=== PATIENT | male | born 1960 | race Two or more races ===

== ENCOUNTER → 2024-10-19 | Emergency (ER) | payer OTHER ==
[~2024-10-19] VITALS: Ht 180.3 cm; Wt 86.2 kg
[~2024-10-19] MED LIST: AMOX-CLAV 875-1 EACH PO; CEFTRIAXONE SODIUM 1,000 MG VIAL IM STA; CEFTRIAXONE SODIUM 1,000 MG VIAL ONE; DICLOFENAC POTA50 MG PO; INTESTINEX680 M1 PO; KETOROLAC TROMETHAMINE 30 MG VIAL IM STA; KETOROLAC TROMETHAMINE 30 MG VIAL ONE; LIDOCAINE HCL 1% 10ML VIAL ONE; METFORMIN HCL1000 MG
[2024-10-19 07:43] VITALS: BP 98/69; O2SAT 99
[2024-10-19 09:53] LABS: BASO % 0.7 % (0.1-1.2); EOS # 0.21 (0.04-0.54); EOS % 2.1 % (0.7-7.0); HEMATOCRIT 42.2 % (40.1-51.0); LYMPH # 3.06 (1.18-3.74); LYMPH % 30.8 % (19.3-53.1); MEAN CORPUSCULAR HEMOGLOBIN 28.6 pg (25.6-32.2); MONO # 1.04 (0.24-0.82); MONO % 10.5 % (4.7-12.5); NEUT # 5.48 (1.56-6.13); NEUT % 55.3 % (34.0-71.1); PLATELET COUNT 184 K/uL (163-369); RED BLOOD COUNT 4.89 M/uL (4.63-6.08); RED CELL DISTRIBUTION WIDTH 13.1 % (11.6-14.4)
== END | disposition home or self-care (01) ==
LOC: ER 07:17
PROVIDERS: General Practice
DX: L03.113 Cellulitis of right upper limb (principal); W55.01XA Bitten by cat, initial encounter; Y93.89 Activity, other specified; Y92.89 Other specified places as the place of occurrence of the external cause